=== PATIENT | male | born 1975 | race Caucasian/White ===

== ENCOUNTER 2025-04-21 13:52 | Emergency (ER) | payer OTHER, SELFPAY ==
[2025-04-21 13:54] VITALS: BP 138/91
--- NOTE | 2025-04-21 16:22 | ED.GENMED ---
History of Present Illness
General
Chief Complaint: Back Pain
Source: patient
Time Seen by Provider: 04/21/25 16:03
History of Present Illness
History of Present Illness:
-year-old male with no significant past medical history presenting for evaluation of back pain for the better part of 4 months, gradually worsening stating the left side of his lumbar area initiated but now having radiating pain down to his foot
constant burning sensation that has been getting progressively worse despite 2 separate rounds of steroid tapers, gabapentin, intermittent oxycodone and anti-inflammatories. Patient states most relief he got was when he was on the oxycodone. He
notes the gabapentin was not doing anything for him and was trying to taper down off of this, he was given a prescription for Lyrica but has yet to start taking this due to the still taking the gabapentin. He states no new symptoms today but was
hoping for some additional relief. He has an MRI scheduled for this coming Saturday and then a follow-up visit with [facility] orthopedics after the MRI to go over the results and treatment planning. He denies any fevers, bowel or urinary
incontinence, saddle anesthesias, focal weakness or numbness, direct traumatic injuries, history of IV substance abuse, abnormal weight loss, night sweats or any other concerns.
Past History
Past History
ED Past Medical History: None
ED Past Surgical History: Tonsilectomy
Social History
Tobacco: Non-smoker
Alcohol: Occasional
Drug: None
Personal:
Living: with family
Employment: Employed
Review of Systems
Review of Systems
All Other Systems: ROS reviewed and negative except as documented in HPI and ROS
Phy Exam
Physical Exam
Physical Exam:
GENERAL: Alert , in no apparent distress but does appear uncomfortable with movement
EYE: clear conjunctiva b/l
NECK: Supple
ENT: o/p clr, mmm.
BACK: Normal range of motion, no focal tenderness, no midline bony tenderness, no rashes
NEUROLOGICAL: Alert and oriented, no focal neuro deficits. Patellar deep tendon reflexes intact and equal bilaterally, sensation grossly intact and equal to light touch bilateral lower extremities
SKIN: Warm and dry, skin intact.
MUSCULOSKELETAL: No edema, well perfused. EHL intact bilaterally however patient reports increased pain/burning when attempting movement of left great toe
PSYCH: Normal and appropriate interaction.
Scores
Heart Failure Risk
Heart Failure Risk Score: Not Applicable
Heart Score for Chest Pain Patients
STEMI patient?: Not applicable
Withdrawal Assessment of Alcohol
Withdrawal Assessment Completed?: Not applicable
Course
Vital Signs
Initial and Last Documented VS:
Initial Vital Signs
Temp Pulse Resp BP Pulse Ox
97.4 F 94 16 138/91 99
04/21/25 13:54 04/21/25 13:54 04/21/25 13:54 04/21/25 13:54 04/21/25 13:54
Last Documented Vital Signs
Temp Pulse Resp BP Pulse Ox
97.4 F 94 16 138/91 99
04/21/25 13:54 04/21/25 13:54 04/21/25 13:54 04/21/25 13:54 04/21/25 16:22
MDM/Problems Addressed
Differential Diagnosis Includes:
Lumbar Radiculopathy
Disc Herniation
Nerve Impingement
Spinal stenosis
Sciatica
Considered cauda equina patient is neurologically intact
Patient without risk factors for osteomyelitis/discitis/epidural abscess/psoas muscle abscess
MDM/Problems Addressed:
50-year-old male presents to the ER for evaluation of persisting and worsening left lumbar radiculopathy, symptoms ongoing for greater than 1 month. Has an MRI scheduled for Saturday, follow-up with his orthopedist thereafter. No focal deficits on
exam. Patient ultimately hoping for some type of pain relief. Discussed with him that we do not perform any epidurals here but that we could treat him with additional oxycodone given this is well-tolerated previously. I did review the [place] PDMP and
he did receive a few prescriptions recently from his primary care provider but we can safely prescribe a new short-term prescription. I did discuss with the patient return precautions to which she was agreeable with. Patient otherwise stable for
discharge home
*Pulse Oximetry
SaO2: 99
Oxygen Mode of Delivery: Room air
Patient hypoxic: no
*Critical Care Note
Total Time (30-74mins, 75-104mins- exclusive of procedures): Not Applicable
Data Reviewed
Review of Other/Old Records Reveals: Records
Source: patient
Comment
Comment:
Records from April 16 reviewed showing the following:
Left lumbar radiculopathy (ICD-10 - M54.16) Tobi Warner is a 49-year-old male presenting today with one month of severe left low back and leg pain. He currently has an MRI pending with [facility] however if it has not yet been submitted to insurance we
will work on the authorization. In regards to his symptoms, he is currently uncontrolled with gabapentin. I advised that he wean off the gabapentin and titrate up on Lyrica. I will send a prescription to his pharmacy. I did administer a trigger
injection with Toradol into his left lumbosacral paraspinals. He did tolerate the injection well. I did advise he apply ice over area injection later today. He will follow-up with me to review the lumbar MRI results. He may call if he has any
questions or concerns.I recommend an MRI to further evaluate for pathology that may be causing the patient's current symptoms. MRI is necessary in order to evaluate for pathology that can only be identified with advanced imaging consistent with the
patient's symptoms. I discussed with the patient that I am ordering a diagnostic test and they have the option of choosing a testing facility which is convenient. The patient clearly understands the importance and rationale of having the testing
completed as recommended. They also understand that testing sometimes yields unexpected or incidentally noted findings of significant importance. The patient also clearly understands the importance of participating in their care by contacting me a
few days after their test to ensure that we follow-up on the results.The patient will follow up with me after obtaining the MRI for further treatment options.
ED Attending Note
-
Portions of this chart may have been created with voice recognition software.� Occasional wrong word or��sound alike� substitutions may have occurred due to the inherent limitations of voice recognition software.
Discharge Plan
Departure
Patient Disposition: Home (Routine Discharge)
Date of Disposition: 04/21/25
Time of Disposition: 16:22
Patient with high blood pressure during this ER visit?: Yes
Discharge Problem:
Acute lumbar radiculopathy
Instructions: Radiculopathy (DC)
Prescriptions:
New
oxycodone-acetaminophen [Percocet] 5-325 mg tablet
1 tab PO Q6HPRN PRN (Reason: pain) Qty: 10 0RF
Referrals:
Junito Garg PA-C [Family Provider, Family Practice]
Discharge Date and Time
Print Language: TELUGU
== END 2025-04-21 16:50 | disposition home or self-care (01) ==
LOC: EMR 13:52
PROVIDERS: EMERGENCY PHYSICIAN Emergency Medicine; FAMILY PHYSICIAN Physician Assistant Medical
DX: M54.16 Radiculopathy, lumbar region (principal); R03.0 Elevated blood-pressure reading, without diagnosis of hypertension
CPT/HCPCS: 99282; 20552

== ENCOUNTER 2025-04-28 20:18 | Emergency (ER) | payer OTHER, SELFPAY ==
[2025-04-28 20:23] VITALS: BP 165/90
[2025-04-28 20:31] VITALS: BMI 24.7
[2025-04-28 20:34] VITALS: BP 165/90
--- NOTE | 2025-04-28 20:50 | ED.GENMED ---
History of Present Illness
<Sherrell Dobbs MD, Resident - Last Filed: 04/28/25 23:53>
General
Chief Complaint: Back Pain
Time Seen by Provider: 04/28/25 20:47
History of Present Illness
History of Present Illness:
49yo M with no significant PMH who presents with worsening of LLE paresthesias/weakness & lower back pain, with new urinary incontinence & erectile dysfunction.
Last seen in ED on 04/21/25: Presented with ~4mo of L lower back pain radiating down L food with constant burning sensation refractory to steroid tapers, gabapentin, & intermittent oxycodone & anti-inflammatories. Denied any fevers, bowel or
urinary incontinence, saddle anesthesias, focal weakness or numbness, direct traumatic injuries, history of IV substance abuse, abnormal weight loss, night sweats or any other concerns.
Since he was last seen, he had appt with [facility] orthopedics and had spinal MRI on 04/23. Unclear what the results of the MRI were, pt unable to access. Next f/u appt with ortho on 05/10. Since he was last seen in ED, pain in LLE has worsened
(burning, tingling), he is unable to ambulate due to LLE pain, and he has developed urinary incontinence and erectile dysfunction. Endorses weakness in L toes. Able to flex L ankle but limited by pain. Denies saddle anesthesia, denies fecal
incontinence. Pt has been taking lyrica 100mg and 2400mg ibuprofen at home, which have not been helping with pain. Received fentanyl en route to ED, which helped w the back pain but not LLE nerve pain. Unable to specify if pain is worsened with
lumbar extension vs. flexion.
Past History
<Sherrell Dobbs MD, Resident - Last Filed: 04/28/25 23:53>
Past History
ED Past Medical History: None
ED Past Surgical History: Tonsilectomy
Social History
Tobacco: Non-smoker
Alcohol: Occasional
Drug: None
Personal:
Living: with family
Employment: Employed
Review of Systems
<Sherrell Dobbs MD, Resident - Last Filed: 04/28/25 23:53>
Review of Systems
Allergies reviewed?: Yes
All Other Systems: ROS reviewed and negative except as documented in HPI and ROS
Constitutional: Reports sleep disturbance
EENT: Reports no symptoms
Respiratory: Reports no symptoms
Cardiac: Reports no symptoms
ABD/GI: Reports no symptoms
: Reports incontinence and other (ED )
Musculoskeletal: Reports back pain and other (LLE pain )
Neurological: Reports weakness and other (LLE paresthesias )
Psychiatric: Reports anxiety
Phy Exam
<Sherrell Dobbs MD, Resident - Last Filed: 04/28/25 23:53>
General Physical Exam
General Presentation: moderate distress (L leg bent up, appears in pain, groaning )
General age: appears stated age
General Skin: warm and dry
General Habitus: normal
General Mental: anxious
Cardiovascular Exam
Cardiovascular Exam: regular rate/rhythm and no edema
Pulmonary Exam
Pulmonary Exam: no respiratory distress
Gastrointestinal Exam
Gastrointestinal Exam: non distended
Neurological Exam
Neurological Exam: alert, oriented x3, no sensory deficits and other (unable to wiggle L toes; able to flex L ankle with diminished ROM compared to R )
Skin Exam
Skin Exam: normal color and warm/dry
Psychiatric Exam
Psychiatric Exam: agitated
Course
<Sherrell Dobbs MD, Resident - Last Filed: 04/28/25 23:53>
Orders/Labs/Results
Orders:
Orders
04/28/25 21:24
HYDROmorphone [Dilaudid] 1 mg IV NOW STA
04/28/25 21:25
diazePAM [Valium Injection] 5 mg IV NOW STA
04/28/25 21:48
Dexamethasone Sod Phosphate [Decadron] 10 mg IV NOW STA
04/28/25 22:27
Complete Blood Count/With Diff Urgent
Comprehensive Metabolic Panel Urgent
Urinalysis Reflex To Culture Urgent
Date Specimen was Collected: 04/28/25
Time Specimen was Collected: 20:45
04/28/25 23:12
HYDROmorphone [Dilaudid] 0.5 mg IV NOW STA
Abnormal Lab Results
04/28/25
22:27
RBC 4.62 L 10^6/uL
(4.70-6.10)
Hct 37.1 L %
(39.0-52.0)
04/28/25 22:27
04/28/25 22:27
Vital Signs
Initial and Last Documented VS:
Initial Vital Signs
Pulse Resp BP Pulse Ox
69 14 165/90 98
04/28/25 20:23 04/28/25 20:23 04/28/25 20:23 04/28/25 20:23
Last Documented Vital Signs
Temp Pulse Resp BP Pulse Ox
98.4 F 63 16 149/78 97
04/28/25 20:34 04/28/25 23:15 04/28/25 23:15 04/28/25 23:00 04/28/25 23:15
<Radha Huang, DO - Last Filed: 04/28/25 23:21>
Orders/Labs/Results
Orders:
Orders
04/28/25 21:24
HYDROmorphone [Dilaudid] 1 mg IV NOW STA
04/28/25 21:25
diazePAM [Valium Injection] 5 mg IV NOW STA
04/28/25 21:48
Dexamethasone Sod Phosphate [Decadron] 10 mg IV NOW STA
04/28/25 22:27
Complete Blood Count/With Diff Urgent
Comprehensive Metabolic Panel Urgent
Urinalysis Reflex To Culture Urgent
Date Specimen was Collected: 04/28/25
Time Specimen was Collected: 20:45
04/28/25 23:12
HYDROmorphone [Dilaudid] 0.5 mg IV NOW STA
Abnormal Lab Results
04/28/25
22:27
RBC 4.62 L 10^6/uL
(4.70-6.10)
Hct 37.1 L %
(39.0-52.0)
04/28/25 22:27
04/28/25 22:27
Vital Signs
Initial and Last Documented VS:
Initial Vital Signs
Pulse Resp BP Pulse Ox
69 14 165/90 98
04/28/25 20:23 04/28/25 20:23 04/28/25 20:23 04/28/25 20:23
Last Documented Vital Signs
Temp Pulse Resp BP Pulse Ox
98.4 F 63 16 149/78 97
04/28/25 20:34 04/28/25 23:15 04/28/25 23:15 04/28/25 23:00 04/28/25 23:15
<Sherrell Dobbs MD, Resident - Last Filed: 04/28/25 23:53>
MDM/Problems Addressed
Differential Diagnosis Includes:
Lumbosacral radiculopathy in s/o likely disc herniation, may involve L5-S4 levels
Low c/f epidural abscess
MDM/Problems Addressed:
Plan:
- 1mg IV dilaudid
- 5mg IV valium
- MRI lumbosacral spine
- Consult ortho for surgical eval
<Sherrell Dobbs MD, Resident - Last Filed: 04/28/25 23:53>
*Pulse Oximetry
SaO2: 98
Oxygen Mode of Delivery: Room air
Patient hypoxic: no
*Critical Care Note
Total Time (30-74mins, 75-104mins- exclusive of procedures): Not Applicable
Data Reviewed
Review of Other/Old Records Reveals: Records and Radiology Studies
<Sherrell Dobbs MD, Resident - Last Filed: 04/28/25 23:53>
Update Note
Update Note:
MRI from 04/23 demonstrate L-sided disc bulge at S1 level
Discussed options w pt, discussed importance ortho f/u for definitive operative trt
Post void residual without overt urinary retention
Combination of valium, dilaudid, decadron made pain in LLE manageable for pt - comfortable with discharge until ortho appt with outpatient [facility] rx
ED Attending Note
<Sherrell Dobbs MD, Resident - Last Filed: 04/28/25 23:53>
-
Portions of this chart may have been created with voice recognition software.� Occasional wrong word or��sound alike� substitutions may have occurred due to the inherent limitations of voice recognition software.
<Radha Huang DO - Last Filed: 04/28/25 23:21>
ED Attending Note
Patient seen and examined by attending physician: Yes
I performed the substantive portion of visit, reviewed & personally made and approve the management plan that is documented in note by myself or HALEY.: Yes
I performed a history and physical exam of patient and discussed management with resident, I reviewed resident's note and agree with documented findings and plan of care.: Yes
ED Attending Note:
49-year-old male without significant past medical history presenting for acute on chronic left-sided back pain. Patient reports ongoing left-sided back pain for the past month and a half. Notes that symptoms have been worsening with radiation of
pain down his left leg, with hypersensitivity. He has been on Lyrica and ibuprofen without significant relief. Patient was seen last week for his symptoms, 04/21, with known appointment scheduled with orthopedics and MRI imaging. Patient had been
prescribed oxycodone with minimal relief. Patient had an MRI completed on Monday 04/23, however was not made aware of the results. Notes that he has been having difficulty with getting an erection in the past week, however that was ongoing prior
to getting the MRI. More recently, yesterday notes some 'urinary incontinence'. He reports that he can feel himself urinate, however when he checks his pants upon going to the bathroom, does note that his pants are slightly wet, however not
saturated. Denies any episodes of full incontinence. Denies any weakness or numbness to his lower extremity. Denies any fecal incontinence. Denies fever. He has still been able to ambulate. Denies any new injury or fall.
On exam, patient is in no acute distress, however does appear uncomfortable secondary to pain. Overall reassuring examination. Range of motion grossly intact to the lower extremity with sensation intact. Pulses are intact. No swelling or
deformity. Generalized tenderness to the left paraspinal musculature of the lower lumbar region. No step-offs. Rectal exam performed, with rectal tone intact. No saddle anesthesia. Was able to access patient's MRI report, done outpatient on
04/23, which shows at L5-S1 small disc bulge with a superimposed left foraminal disc protrusion. Mild central canal narrowing with mass effect on the left S1 nerve root. This is consistent with patient's symptoms. MRI shows that the spinal canal
is normal, normal distribution of the nerve roots and the thecal sac and no canal collection or mass identified. Given these findings, without present concern for cord compression or spinal compromise. No present indication for repeat MRI imaging.
Regarding report of some incontinence, suspect more likely that he is having spasming with urinary leakage. Patient notes that he has no issues emptying, without concern for overflow incontinence. Patient denies any true episodes of complete
incontinence. Will treat patient's symptoms with Dilaudid and Valium and reassess for improvement. Will also give a dose of Decadron.
23:10 -on reassessment, patient is reporting symptom improvement. Patient is ranging his left lower extremity with increased improvement. Patient was able to urinate twice while in the emergency department, no significant postvoid residual.
Remains neurovascularly intact. At this time continue to suspect lumbar radiculopathy and herniated disc as etiology of patient's symptoms. Patient feels well enough to go home. Will prescribe the Valium and notes that he had a trigger injection
in the past with improvement with Toradol. Will prescribe Toradol. Advised that he call the orthopedic office tomorrow for follow-up appointment after his MRI. However, extensive conversation had with patient regarding strict return precautions
including true urinary incontinence, fecal incontinence, numbness or tingling to his extremity. Patient verbalized understand
Discharge Plan
Departure
Patient Disposition: Home (Routine Discharge)
Date of Disposition: 04/28/25
Time of Disposition: 23:12
Patient with high blood pressure during this ER visit?: Yes
Condition: Fair
Covid-19: Not Applicable
Discharge Problem:
Left lumbosacral radiculopathy
Instructions: Herniated disc, Sciatica (DC), Herniated Disc Exercises
Prescriptions:
New
diazepam [Valium] 5 mg tablet
5 mg PO TID PRN (Reason: muscle spasm) Qty: 15 0RF
ketorolac 10 mg tablet
10 mg PO Q8H 4 Days Qty: 12 0RF
No Action
oxycodone-acetaminophen [Percocet] 5-325 mg tablet
1 tab PO Q6HPRN PRN (Reason: pain) Qty: 10 0RF
Referrals:
Junito Garg PA-C [Family Provider, Family Practice]
Neo Correia MD [Active, Orthopedics]
Activity Restrictions/Additional Instructions:
You were seen in the emergency department for increased back pain
We were able to see your MRI report which shows a disc bulge at L5-S1 with disc protrusion and impingement on the S1 nerve root, which we suspect to be the source of your symptoms. For your symptoms, you were started on Toradol and Valium. Please
take as directed
Please call the orthopedic office tomorrow for your persistent pain
Return to the emergency department for any worsening of your symptoms, particularly any weakness or numbness to your lower extremity with fecal and urinary incontinence, or any development of chest pain, difficulty breathing, abdominal pain with
persistent vomiting and inability to tolerate food or liquid by mouth (concern for dehydration), headache or confusion, fever greater than 100.4, or any additional symptoms that are concerning to you.
Thank you for choosing [facility].
Interventions
Interventions:
*Risk Screen - Suicide Last Done: 04/28/25 20:31
*General Assessment Last Done: 04/28/25 20:31
*Neglect/Abuse Screening Last Done: 04/28/25 20:31
*ED- Fall Risk Assessment Last Done: 04/28/25 20:31
*ED COVID-19 Vaccine History Last Done: 04/28/25 20:31
*ED Influenza Vaccine History Last Done: 04/28/25 20:31
*Nursing Disposition Last Done: 04/28/25 23:39
ED-Musculoskeletal Assessment Last Done: 04/28/25 23:38
Discharge Date and Time
Discharge Date/Time: 04/28/25 23:40
Print Language: MONGOLIAN
[2025-04-28 21:00] VITALS: BP 149/78
[2025-04-28] MEDS: VALIUM INJECTION 5 MG IV (21:55)
[2025-04-28] MEDS: DILAUDID 1 MG IV (21:55)
[2025-04-28] MEDS: DECADRON 10 MG IV (21:56)
[2025-04-28 22:00] VITALS: BP 141/88
[2025-04-28 22:38] LABS: Hematocrit 37.1 % (39.0-52.0); Hemoglobin 13.6 g/dL (13.0-18.0); Mean Corp Hgb Conc. 36.7 g/dL (33.0-37.0); Mean Corpuscular Volume 80.3 fL (80.0-94.0); Nucleated Red Blood Cells % 0 % (-); Platelet Count 272 10^3/uL (130-400); Red Cell Dist. Width 11.6 % (11.5-14.5)
[2025-04-28 22:40] LABS: Urine Character Clear (Clear)
[2025-04-28 22:48] LABS: ALT (SGPT) 29 U/L (0-50); AST (SGOT) 24 U/L (17-59); Albumin 4.7 g/dl (3.5-5.0); Alkaline Phosphatase 47 U/L (38-126); Blood Urea Nitrogen 15 mg/dl (9-20); Calcium 9.7 mg/dl (8.4-10.2); Carbon Dioxide 26 mmol/L (22-30); Chloride 102 mmol/L (98-107); Estimated Creatinine Clearance 125 ml/min; Glucose 93 mg/dl (70-99); Potassium 4.0 mmol/L (3.5-5.1); Sodium 135 mmol/L (135-145); Total Protein 7.3 g/dl (6.3-8.2); eGFR > 60.00
[2025-04-28 23:00] VITALS: BP 149/78
[2025-04-28] MEDS: DILAUDID 0.5 MG IV (23:22)
== END 2025-04-28 23:40 | disposition home or self-care (01) ==
LOC: EMR 20:18
PROVIDERS: EMERGENCY PHYSICIAN Student in an Organized Health Care Education/Training Program; FAMILY PHYSICIAN Physician Assistant Medical
DX: M51.372 Other intervertebral disc degeneration, lumbosacral region with discogenic back pain and lower extremity pain (principal); R03.0 Elevated blood-pressure reading, without diagnosis of hypertension
CPT/HCPCS: 99284; 96374; 96375 ×2; 96376; 80053; 81003; 85025

== ENCOUNTER 2025-05-19 06:35 | Day surgery (SDC) | payer OTHER, SELFPAY ==
[2025-05-14 13:33] VITALS: BMI 24.5
[2025-05-14 14:04] LABS: Hematocrit 36.8 % (39.0-52.0); Hemoglobin 13.1 g/dL (13.0-18.0); Mean Corp Hgb Conc. 35.6 g/dL (33.0-37.0); Mean Corpuscular Volume 83.4 fL (80.0-94.0); Platelet Count 261 10^3/uL (130-400); Red Cell Dist. Width 11.8 % (11.5-14.5)
[2025-05-14 15:03] LABS: ALT (SGPT) 73 U/L (0-50); AST (SGOT) 28 U/L (17-59); Albumin 4.8 g/dl (3.5-5.0); Alkaline Phosphatase 38 U/L (38-126); Blood Urea Nitrogen 14 mg/dl (9-20); Calcium 9.4 mg/dl (8.4-10.2); Carbon Dioxide 30 mmol/L (22-30); Chloride 101 mmol/L (98-107); Estimated Creatinine Clearance > 125 ml/min; Glucose 117 mg/dl (70-99); Potassium 4.2 mmol/L (3.5-5.1); Sodium 138 mmol/L (135-145); Total Protein 7.1 g/dl (6.3-8.2); eGFR > 60.00
[2025-05-14 18:00] VITALS: BMI 24.5
[2025-05-19] VITALS (10 sets, daily range): BP systolic 97–112; BP diastolic 60–70
[2025-05-19] MEDS: NORMOSOL-R/PLASMALYTE-A 1000 IV (08:45)
[2025-05-19] MEDS: TYLENOL 1000 MG PO (09:03)
[2025-05-19] MEDS: METHOCARBAMOL 1500 MG PO (09:04)
[2025-05-19] MEDS: MOBIC 15 MG PO (09:04)
[2025-05-19] MEDS: LYRICA 150 MG PO (09:04)
[2025-05-19] MEDS: DILAUDID 0.25 MG IV ×2 (11:40→12:08)
[2025-05-19] MEDS: ROXICODONE 5 MG PO (13:42)
== END 2025-05-19 13:47 | disposition home or self-care (01) ==
LOC: SDS 06:35
PROVIDERS: ATTENDING PHYSICIAN Orthopaedic Surgery Orthopaedic Surgery of the Spine; FAMILY PHYSICIAN Physician Assistant Medical
DX: M48.062 Spinal stenosis, lumbar region with neurogenic claudication (principal)
CPT/HCPCS: 63047; 36415; 72020; 80053; 85027; 87070